=== PATIENT | female | born 1950 ===

== ENCOUNTER 2022-07-16 17:29 | Inpatient (IN) | payer OTHER ==
[2022-07-22] MEDS ORDERED: SYNTHROID125 MCG (12:28)
[2022-07-22] MEDS ORDERED: ZESTRIL40 M1 (12:28)
[2022-07-22] MEDS ORDERED: RESTORIL30 M1 (12:29)
[2022-07-22] MEDS ORDERED: AZOR 10-20 MG1 EACH (12:29)
== END 2022-07-28 11:58 | disposition home or self-care (01) | DRG 460 ==
LOC: O/R 07-26 05:00 → SURG 07-26 05:00
PROVIDERS: ADMIT Student in an Organized Health Care Education/Training Program; ATTEND Student in an Organized Health Care Education/Training Program
PROC: 01NB0ZZ Release Lumbar Nerve, Open Approach (ICD-10-PCS; 2022-07-26)
PROC: 0SG0071 Fusion of Lumbar Vertebral Joint with Autologous Tissue Substitute, Posterior Approach, Posterior Column, Open Approach (ICD-10-PCS; principal; 2022-07-26 07:00)
DX: M48.061 Spinal stenosis, lumbar region without neurogenic claudication (principal); M54.16 Radiculopathy, lumbar region; I10 Essential (primary) hypertension; E11.9 Type 2 diabetes mellitus without complications; M43.16 Spondylolisthesis, lumbar region; Z79.84 Long term (current) use of oral hypoglycemic drugs